=== PATIENT | male | born 1980 | race Caucasian/White ===

== ENCOUNTER 2022-08-27 18:35 | Emergency (ER) | payer SELFPAY ==
[~2022-08-27] VITALS: Ht 167.6 cm; Wt 129.3 kg
[2022-08-27 18:41] VITALS: BP 148/82
[2022-08-27] MEDS ORDERED: HYDR-636 PO ×2 (19:56→20:05)
[2022-08-27] MEDS ORDERED: ALBU0.0912 INH ×2 (19:56→20:05)
[2022-08-27] MEDS ORDERED: LIDO15SO PO ×2 (19:56→20:05)
[2022-08-27] MEDS ORDERED: SUD30 PO ×2 (19:56→20:05)
[2022-08-27 20:07] VITALS: BP 148/82
--- NOTE | 2022-08-27 20:07 | NUR ---
Patient discharged with v/s stable. Written and verbal after care instructions given and explained. Patient alert, oriented and verbalized understanding of instructions. Ambulatory with steady gait. All questions addressed prior to discharge. ID band removed. Patient advised to follow up with PMD. Rx of ALBUTEROL, HYDROXYZINE, LIDOCAINE, PENUDOPHERINE given. Patient educated on indication of medication including possible reaction and side effects. Opportunity to ask questions provided and answered.
== END 2022-08-27 20:07 | disposition home or self-care (01) ==
LOC: MED 18:35
DX: B34.9 Viral infection, unspecified (principal); J02.9 Acute pharyngitis, unspecified; E11.9 Type 2 diabetes mellitus without complications; Z79.4 Long term (current) use of insulin; Z79.899 Other long term (current) drug therapy
CPT/HCPCS: 99283